=== PATIENT | female | born 1985 | race Caucasian/White ===

== ENCOUNTER 2018-12-01 09:02 | Emergency (ER) | payer OTHER ==
[2018-12-01 09:16] VITALS: TEMP 98.8
[2018-12-01] MEDS ORDERED: SODIUM CHLORIDE 0.9% 1,000 ML IV ONE ×2 (09:22)
--- NOTE | 2018-12-01 09:35 | ED ---
Female Urogenital HPI - General Chief complaint: Vaginal Bleeding Stated complaint: Poss miscarriage Time Seen by Provider: 12/01/18 09:21 Source: patient, RN notes reviewed, old records reviewed Mode of arrival: ambulatory Limitations: no limitations - History of Present Illness Initial comments: This is a 33-year-old female, she presents emergency Department today with complaint of vaginal bleeding beginning last night. Patient states she is approximately 10 weeks . She reports that she had an ultrasound completed at the [facility] to confirm the dates. Patient states that she does not have an HEEL SEAT SANDER at this time but is planning to follow-up with water HEEL SEAT SANDER. Patient reports that she did have some vaginal discharge over the past weekend. She complains of some cramping at this time. Patient is a female. - Related Data Home Medications Medication Instructions Recorded Confirmed Multivitamins, Thera [Multivitamin 1 tab PO DAILY 12/01/18 12/01/18 (formulary)] [place]-3 Fatty Acids/Fish Oil [Fish 1 cap PO DAILY 12/01/18 12/01/18 Oil 1,000 mg Softgel] Zie-Uocy-Zsyjc Acid 1 cap PO DAILY 12/01/18 12/01/18 [-U Capsule (formulary)] Allergies Allergy/AdvReac Type Severity Reaction Status Date / Time sulfamethoxazole Allergy Rash/Hives Verified 12/01/18 09:21 [From Bactrim] trimethoprim [From Bactrim] Allergy Rash/Hives Verified 12/01/18 09:21 Review of Systems ROS Statement: Those systems with pertinent positive or pertinent negative responses have been documented in the HPI. ROS Other: All systems not noted in ROS Statement are negative. Past Medical History Past Medical History: No Reported History History of Any Multi-Drug Resistant Organisms: MRSA Date of last positivie culture/infection: Lt and RT arm 2017 Past Surgical History: No Surgical Hx Reported Past Psychological History: No Psychological Hx Reported Smoking Status: Current every day smoker Past Alcohol Use History: None Reported Past Drug Use History: None Reported General Exam Limitations: no limitations General appearance: alert, in no apparent distress Head exam: Present: atraumatic, normocephalic, normal inspection Eye exam: Present: normal appearance ENT exam: Present: normal exam, mucous membranes moist Neck exam: Present: normal inspection. Absent: tenderness, meningismus, lymphadenopathy Respiratory exam: Present: normal lung sounds bilaterally. Absent: respiratory distress, wheezes, rales, rhonchi, stridor Cardiovascular Exam: Present: regular rate, normal rhythm, normal heart sounds. Absent: systolic murmur, diastolic murmur, rubs, gallop, clicks GI/Abdominal exam: Present: soft, normal bowel sounds. Absent: distended, tenderness, guarding, rebound, rigid External exam: Present: normal external exam Speculum exam: Present: vaginal bleeding (clots within vaginal vault). Absent: normal speculum exam By manual exam: Present: normal by manual exam. Absent: cervical motion tenderness Extremities exam: Present: normal inspection, full ROM, normal capillary refill. Absent: tenderness, pedal edema, joint swelling, calf tenderness Back exam: Present: normal inspection Neurological exam: Present: alert, oriented X3, CN II-XII intact Psychiatric exam: Present: normal affect, normal mood Skin exam: Present: warm Course Vital Signs 12/01/18 09:13 Temperature 98.8 F Pulse Rate 89 Respiratory 18 Rate Blood Pressure 115/66 O2 Sat by Pulse 100 Oximetry Medical Decision Making - Medical Decision Making Patient is a 33-year-old female presents emergency department today for evaluation for vaginal bleeding times one day. She does not have an established U and she is starting to see Dr. Choudhury as well as does have an appointment for Dr. Bob the next 2 weeks. She started having vaginal bleeding and cramping last night into today. On pelvic exam she did have a large clot and it opened cervix. Patient Rh is positive. HCG level 7000. All shot was performed and shows no evidence of intrauterine . Discussed concern for miscarriage about dental IUP. Discussed need to have Patient repeat her hCG levels. I discussed this with Dr. Valdivia, he states we do not have to contact HEEL SEAT SANDER at this time. Discussed he can have a repeat her hCG level. All questions were answered. - Lab Data Result diagrams: 12/01/18 09:42 12/01/18 09:42 Lab Results 12/01/18 12/01/18 12/01/18 Range/Units 09:42 09:42 09:42 WBC 11.1 H (3.8-10.6) k/uL RBC 4.08 (3.80-5.40) m/uL Hgb 12.8 (11.4-16.0) gm/dL Hct 36.2 (34.0-46.0) % MCV 88.9 (80.0-100.0) fL MCH 31.3 (25.0-35.0) pg MCHC 35.3 (31.0-37.0) g/dL RDW 12.7 (11.5-15.5) % Plt Count 349 (150-450) k/uL Neutrophils % 79 % Lymphocytes % 16 % Monocytes % 3 % Eosinophils % 1 % Basophils % 0 % Neutrophils # 8.8 H (1.3-7.7) k/uL Lymphocytes # 1.8 (1.0-4.8) k/uL Monocytes # 0.3 (0-1.0) k/uL Eosinophils # 0.1 (0-0.7) k/uL Basophils # 0.0 (0-0.2) k/uL PT (9.0-12.0) sec INR (<1.2) APTT (22.0-30.0) sec Sodium 141 (137-145) mmol/L Potassium 4.1 (3.5-5.1) mmol/L Chloride 105 (98-107) mmol/L Carbon Dioxide 25 (22-30) mmol/L Anion Gap 11 mmol/L BUN 8 (7-17) mg/dL Creatinine 0.65 (0.52-1.04) mg/dL Est GFR (CKD-EPI)AfAm >90 (>60 ml/min/1.73 sqM) Est GFR (CKD-EPI)NonAf >90 (>60 ml/min/1.73 sqM) Glucose 85 (74-99) mg/dL Calcium 9.8 (8.4-10.2) mg/dL Total Bilirubin 0.3 (0.2-1.3) mg/dL AST 18 (14-36) U/L ALT 16 (9-52) U/L Alkaline Phosphatase 52 (38-126) U/L Total Protein 7.8 (6.3-8.2) g/dL Albumin 4.7 (3.5-5.0) g/dL HCG, Quant 07924.7 mIU/mL Urine Color Urine Appearance (Clear) Urine pH (5.0-8.0) Ur Specific [place] (1.001-1.035) Urine Protein (Negative) Urine Glucose (UA) (Negative) Urine Ketones (Negative) Urine Blood (Negative) Urine Nitrite (Negative) Urine Bilirubin (Negative) Urine Urobilinogen (<2.0) mg/dL Ur Leukocyte Esterase (Negative) Urine RBC (0-5) /hpf Urine WBC (0-5) /hpf Ur Squamous Epith Cells (0-4) /hpf Urine Bacteria (None) /hpf Urine HCG, Qual (Not Detectd) Blood Type B Positive Blood Type Recheck No Previous Record Bld Type Recheck Status [facility] ONLY 12/01/18 12/01/18 12/01/18 Range/Units 09:42 10:16 10:16 WBC (3.8-10.6) k/uL RBC (3.80-5.40) m/uL Hgb (11.4-16.0) gm/dL Hct (34.0-46.0) % MCV (80.0-100.0) fL MCH (25.0-35.0) pg MCHC (31.0-37.0) g/dL RDW (11.5-15.5) % Plt Count (150-450) k/uL Neutrophils % % Lymphocytes % % Monocytes % % Eosinophils % % Basophils % % Neutrophils # (1.3-7.7) k/uL Lymphocytes # (1.0-4.8) k/uL Monocytes # (0-1.0) k/uL Eosinophils # (0-0.7) k/uL Basophils # (0-0.2) k/uL PT 9.8 (9.0-12.0) sec INR 0.9 (<1.2) APTT 26.5 (22.0-30.0) sec Sodium (137-145) mmol/L Potassium (3.5-5.1) mmol/L Chloride (98-107) mmol/L Carbon Dioxide (22-30) mmol/L Anion Gap mmol/L BUN (7-17) mg/dL Creatinine (0.52-1.04) mg/dL Est GFR (CKD-EPI)AfAm (>60 ml/min/1.73 sqM) Est GFR (CKD-EPI)NonAf (>60 ml/min/1.73 sqM) Glucose (74-99) mg/dL Calcium (8.4-10.2) mg/dL Total Bilirubin (0.2-1.3) mg/dL AST (14-36) U/L ALT (9-52) U/L Alkaline Phosphatase (38-126) U/L Total Protein (6.3-8.2) g/dL Albumin (3.5-5.0) g/dL HCG, Quant mIU/mL Urine Color Light Red Urine Appearance Cloudy H (Clear) Urine pH 7.0 (5.0-8.0) Ur Specific [place] 1.002 (1.001-1.035) Urine Protein 1+ H (Negative) Urine Glucose (UA) Negative (Negative) Urine Ketones Negative (Negative) Urine Blood Large H (Negative) Urine Nitrite Negative (Negative) Urine Bilirubin Negative (Negative) Urine Urobilinogen <2.0 (<2.0) mg/dL Ur Leukocyte Esterase Large H (Negative) Urine RBC 8 H (0-5) /hpf Urine WBC 16 H (0-5) /hpf Ur Squamous Epith Cells 7 H (0-4) /hpf Urine Bacteria Rare H (None) /hpf Urine HCG, Qual Detected (Not Detectd) Blood Type Blood Type Recheck Bld Type Recheck Status - Radiology Data Radiology results: report reviewed Ultrasound shows no acute or gestation identified. No suspicious ovarian masses. Her for findings could be concern for spontaneous , ectopic could be considered. Correlate with hCG is recommended. Disposition Clinical Impression: Miscarriage Disposition: HOME SELF-CARE Condition: Good Instructions (If sedation given, give patient instructions): Miscarriage (ED) Additional Instructions: Please use medication as discussed. Please follow up with family doctor if symptoms have not improved over the next two days. Please return to the emergency room if your symptoms increase or worsen or for any other concerns. Is patient prescribed a controlled substance at d/c from ED?: No Referrals: None,Stated [Primary Care Provider] - 1-2 days Madison Bob DO [Doctor of Osteopathic Medicine] - 1-2 days Elvira Velasquez MD [STAFF PHYSICIAN] - 1-2 days Time of Disposition: 11:51
[2018-12-01 10:11] LABS: Basophils % (A) 0 %; Eosinophils # (A) 0.1 k/uL (0-0.7); Eosinophils % (A) 1 %; HCT 36.2 % (34.0-46.0); HGB 12.8 gm/dL (11.4-16.0); Lymphocytes # (A) 1.8 k/uL (1.0-4.8); Lymphocytes % (A) 16 %; MCH 31.3 pg (25.0-35.0); MCHC 35.3 g/dL (31.0-37.0); MCV 88.9 fL (80.0-100.0); Monocytes # (A) 0.3 k/uL (0-1.0); Monocytes % (A) 3 %; Neutrophils # (A) 8.8 k/uL (1.3-7.7); Neutrophils % (A) 79 %; Platelet Count 349 k/uL (150-450); RBC 4.08 m/uL (3.80-5.40); RDW 12.7 % (11.5-15.5); WBC 11.1 k/uL (3.8-10.6)
[2018-12-01 10:16] LABS: INR 0.9 (<1.2); Partial Thromboplastin Time 26.5 sec (22.0-30.0); Prothrombin Time 9.8 sec (9.0-12.0)
[2018-12-01 10:18] LABS: ALT 16 U/L (9-52); AST 18 U/L (14-36); African American GFR (CKD) >90 (>60 ml/min/1.73 sqM); Albumin 4.7 g/dL (3.5-5.0); Alkaline Phosphatase 52 U/L (38-126); Anion Gap 11 mmol/L; Blood Urea Nitrogen 8 mg/dL (7-17); Calcium 9.8 mg/dL (8.4-10.2); Carbon Dioxide 25 mmol/L (22-30); Chloride 105 mmol/L (98-107); Glucose 85 mg/dL (74-99); Potassium 4.1 mmol/L (3.5-5.1); Sodium 141 mmol/L (137-145); Total Bilirubin 0.3 mg/dL (0.2-1.3); Total Protein 7.8 g/dL (6.3-8.2)
[2018-12-01 10:34] LABS: HCG,Quantitative Serum 10411.7 mIU/mL
--- NOTE | 2018-12-01 10:34 | US ---
EXAMINATION TYPE: Transabdominal DATE OF EXAM: 12/01/2018 10:19 AM COMPARISON: NONE CLINICAL HISTORY: pain. bleeding EXAM PERFORMED: Transabdominal (TA) EXAM MEASUREMENTS: GESTATIONAL AGE / DATING Physician Established: (10 weeks/1 days) EDC: 06/28/2019 Dates by LMP: LMP unknown Dates by First Scan: No previous this is first scan Dates by Current Scan for: No IUP seen at this time MATERNAL ANATOMY Uterus: 9.3 x 5.5 x 7.1 cm Right Ovary: 2.7 x 1.6 x1.5 cm Left Ovary: 2.7 x 2.0 x 1.9 cm Post CDS / Adnexa: wnl Presence of free fluid: no Presence of corpus luteal cyst: no Presence of subchorionic bleed: no GESTATION / SURVEY IUP: No IUP seen at this time Beta HcG (if available): Not available at this time IMPRESSION: 1. No intrauterine gestation identified. 2. No suspicious ovarian masses. 3. Findings could be related to spontaneous . Ectopic should be considered. Correla tion with beta-hCG is recommended.
[2018-12-01 10:51] LABS: Appearance,Urine Cloudy (Clear); Bacteria,Urine Rare /hpf; Bilirubin,Urine Negative (Negative); Blood,Urine Large (Negative); Color,Urine Light Red; Glucose,Urine (UA) Negative (Negative); Ketones,Urine Negative (Negative); Leukocyte Esterase,Urine Large (Negative); Nitrite,Urine Negative (Negative); Protein,Urine 1+ (Negative); RBC,Urine 8 /hpf (0-5); Specific Gravity,Urine 1.002 (1.001-1.035); Squamous Epithelial Cell,Urine 7 /hpf (0-4); Urobilinogen,Urine <2.0 mg/dL (<2.0); WBC,Urine 16 /hpf (0-5)
[2018-12-01 12:06] VITALS: BP 108/78; PULSE 70; RESP 16
== END 2018-12-01 12:20 | disposition home or self-care (01) ==
LOC: EC 09:02
DX: O03.9 Complete or unspecified spontaneous abortion without complication (principal); Z67.90 Unspecified blood type, Rh positive; O99.331 Smoking (tobacco) complicating pregnancy, first trimester; F17.200 Nicotine dependence, unspecified, uncomplicated; Z88.2 Allergy status to sulfonamides; Z86.14 Personal history of Methicillin resistant Staphylococcus aureus infection; Z3A.10 10 weeks gestation of pregnancy
CPT/HCPCS: 36415; 76801; 80053; 81001; 81025; 84702; 85025; 85610; 85730; 86900; 86901; 96360; 96361; 99284

== ENCOUNTER → 2020-09-13 | Outpatient (CLI) | payer OTHER ==
--- NOTE | 2020-09-13 13:58 | XR ---
EXAMINATION TYPE: XR cervical spine limited DATE OF EXAM: 09/13/2020 TECHNIQUE: Frontal, lateral, and open mouth view of the cervical spine are obtained. HISTORY: M99.01 M54.2 COMPARISON: None FINDINGS: The cervical spine is visualized in its entirety from C1 thru the top of T1 level. There i s slight straightening of the lower cervical lordosis. The pre-vertebral soft tissue appears within n ormal limits. The C1-C2 articulation is within normal limits on the open mouth view. The oblique im ages are within normal limits. IMPRESSION: There is slight straightening of the lower cervical lordosis.
== END | disposition home or self-care (01) ==
LOC: RADXRMAIN 12:25
DX: M43.6 Torticollis (principal)
CPT/HCPCS: 72040

== ENCOUNTER → 2021-07-27 | Outpatient (CLI) | payer OTHER ==
--- NOTE | 2021-07-27 18:03 | XR ---
EXAMINATION TYPE: XR lumbar spine 2 or 3V DATE OF EXAM: 07/27/2021 COMPARISON: NONE HISTORY: Back pain TECHNIQUE: 3 views FINDINGS: Lumbar vertebrae of normal spacing and alignment. Posterior elements are intact. No nat berenice fracture. Sacroiliac joints are normal. IMPRESSION: Normal lumbar spine exam.
== END | disposition home or self-care (01) ==
LOC: RADXRMAIN 17:18
PROVIDERS: ATTEND Nurse Practitioner Gerontology
DX: M54.9 Dorsalgia, unspecified (principal)
CPT/HCPCS: 72100

== ENCOUNTER → 2021-08-27 | Outpatient (CLI) | payer OTHER ==
--- NOTE | 2021-08-28 04:14 | MR ---
EXAMINATION TYPE: MR lumbar spine wo con DATE OF EXAM: 08/27/2021 COMPARISON: None HISTORY: Back pain x 13 weeks, lumbar radiculopathy Multiplanar multiecho imaging of the lumbar spine with no contrast. The vertebrae have normal alignment. There is decreased signal in the L5-S1 disc. No significant disc space narrowing. No compression fracture. The lumbar neural foramina are widely patent. Posterior el ements are intact. No spinal stenosis. Lumbar nerve roots appear normal. Sacroiliac joints are intact . There is no lumbar paraspinal mass. There is some mild degenerative disc signal change at T11-12. IMPRESSION: Mild degenerative disc signal changes at L5-S1. No lumbar disc herniation or spinal stenosis. No frac ture.
== END | disposition home or self-care (01) ==
LOC: RADMRIMAIN 10:58
PROVIDERS: ATTEND Nurse Practitioner Gerontology
DX: M51.16 Intervertebral disc disorders with radiculopathy, lumbar region (principal)
CPT/HCPCS: 72148

== ENCOUNTER → 2023-02-18 | Outpatient (CLI) | payer BC, OTHER ==
--- NOTE | 2023-02-19 08:46 | MM ---
Reason for Exam: Screening (asymptomatic). Baseline mammogram. Patient History: Menarche at age 14. First Full-Term at age 31. Late child-bearing (after 30). Premenopausal. Risk Values: Nancy 5 year model risk: 0.5%. NCI Lifetime model risk: 12.6%. Prior Study Comparison: Patient's first Mammogram. Tissue Density: The breast tissue is extremely dense which could obscure a lesion on mammography. Findings: Analyzed By CAD. There is no suspicious group of microcalcifications or new suspicious mass in either breast. Overall Assessment: Negative, BI-RAD 1 Management: Screening Mammogram of both breasts in 1 year. . Patient should continue monthly self-breast exams. A clinical breast exam by your physician is recommended on an annual basis. This exam should not preclude additional follow-up of suspicious palpable abnormalities. Note on Nancy scores and lifetime risk: 1. A Nanyc score greater than 3% is considered moderate risk. If this is the case, consider specialist referral to assess eligibility for a risk reducing agent. 2. If overall lifetime risk for the development of breast cancer is 20% or higher, the patient may qualify for future screening with alternating mammogram and breast MRI. Electronically signed and approved by: Chuck Mathew M.D. Radiologis
== END | disposition home or self-care (01) ==
LOC: RADMAMWWP 07:29
PROVIDERS: ATTEND Internal Medicine Geriatric Medicine
DX: Z12.31 Encounter for screening mammogram for malignant neoplasm of breast (principal)
CPT/HCPCS: 77063; 77067

== ENCOUNTER 2024-01-17 12:02 | Inpatient (IN) | payer BC ==
[2024-01-17] MEDS ORDERED: OXYTOCIN 10 UNIT/ML 1 ML VIAL IM PRN (12:29)
[2024-01-17] MEDS ORDERED: miSOPROStoL 200 MCG TAB RECTAL PRN (12:29)
[2024-01-17] MEDS ORDERED: LIDOCAINE 0.5% (PF) 5 MG/ML (50 ML SDV) SQ PRN (12:29)
[2024-01-17] MEDS ORDERED: TRANEXAMIC 1,000 MG/100ML-NACL 1,000 MG in EMPTY BAG 1 BAG IV PRN (12:29)
[2024-01-17] MEDS ORDERED: TERBUTALINE 1 MG/ML VIAL SQ PRN (12:29)
[2024-01-17] MEDS ORDERED: METHYLERGONOVINE 0.2 MG/ML 1 ML AMP IM PRN (12:29)
[2024-01-17] MEDS ORDERED: miSOPROStoL 200 MCG TAB PO PRN (12:29)
[2024-01-17] MEDS ORDERED: CARBOPROST TROMETHAMINE 250 MCG/ML 1 ML AMP IM PRN (12:29)
[2024-01-17 12:40] VITALS: RESP 16
[2024-01-17] MEDS: LACTATED RINGERS 1,000 ML IV SCH (12:44)
[2024-01-17 12:47] LABS: Basophils % (A) 0 %; Eosinophils # (A) 0.1 k/uL (0-0.7); Eosinophils % (A) 1 %; HCT 42.2 % (34.0-46.0); HGB 14.3 gm/dL (11.4-16.0); Lymphocytes # (A) 1.7 k/uL (1.0-4.8); Lymphocytes % (A) 10 %; MCH 33.5 pg (25.0-35.0); MCV 98.6 fL (80.0-100.0); Mean Platelet Volume 7.6; Monocytes # (A) 0.5 k/uL (0-1.0); Monocytes % (A) 3 %; Neutrophils # (A) 14.1 k/uL (1.3-7.7); Neutrophils % (A) 85 %; Platelet Count 253 k/uL (150-450); RBC 4.28 m/uL (3.80-5.40); WBC 16.5 k/uL (3.8-10.6)
--- NOTE | 2024-01-17 12:54 | P.HPOB ---
History of Present Illness H&P Date: 01/17/24 Chief Complaint: 39-3/7 weeks, active labor The patient is a 38-year-old 4 para 1-0-2-1 admitted at 39-3/7 weeks as established by last menstrual period and confirmed by second trimester ultrasound. She is admitted in active labor with all signs reassuring, category 1 heart rate tracing. Her has been uncomplicated and group B strep status is negative. She does fall into the category of advanced maternal age and declined testing for trisomy. Obstetrical history: 4 para 1-0-2-1 with 1 term vaginal delivery without complications. Current statistics are listed in history of present illness. EDC of 01/21/2024 was established by last menstrual period and confirmed by second trimester ultrasound. Laboratory workup demonstrates a blood type of B+ with a negative antibody screen. Rubella status is immune. The remainder of the laboratory workup was within normal limits. 1 hour Glucola was normal and group B strep status is negative. Gynecologic history: Unremarkable with no history of any infections to include STDs. Review of Systems Review of systems is confined to history of present illness. Past Medical History Past Medical History: Asthma, Thyroid Disorder History of Any Multi-Drug Resistant Organisms: MRSA Date of last positivie culture/infection: Lt and RT arm 2017 MDRO Source:: Pt. Past Surgical History: No Surgical Hx Reported Past Anesthesia/Blood Transfusion Reactions: No Reported Reaction Past Psychological History: No Psychological Hx Reported Smoking Status: Current every day smoker Past Alcohol Use History: None Reported Past Drug Use History: None Reported - Past Family History Father Family Medical History: No Reported History Medications and Allergies Home Medications Medication Instructions Recorded Confirmed Type Eqm-Hbpy-Flsks Acid 1 cap PO DAILY 12/01/18 01/17/24 History [-U Capsule (formulary)] Allergies Allergy/AdvReac Type Severity Reaction Status Date / Time sulfamethoxazole Allergy Rash/Hives Verified 01/17/24 12:16 [From Bactrim] trimethoprim [From Bactrim] Allergy Rash/Hives Verified 01/17/24 12:16 Exam Vital Signs Temp Pulse Resp BP Pulse Ox 01/17/24 12:34 97.1 F L 73 16 118/65 99 Intake and Output 01/16/24 01/17/24 01/17/24 22:59 06:59 14:59 Other: Weight 78.925 kg In general, this is a well-developed, well-nourished white female in no acute distress though she is in active labor. Her heart has a regular rhythm and rate without murmur. Her lungs are clear to auscultation bilaterally in all coronado. Her abdomen is gravid, nondistended, has normal active bowel sounds, is soft, nontender, and without any palpable masses aside from the uterine fundus. Her extremities are without any cyanosis, clubbing, or edema and are nontender to palpation bilaterally. Digital cervical examination performed by the nursing staff demonstrates her cervix to be 7 cm dilated, 90% effaced, with the vertex and presentation at -2 station. Results Result Diagrams: 01/17/24 12:38 Abnormal Lab Results - Last 24 Hours (Table) 01/17/24 Range/Units 12:38 WBC 16.5 H (3.8-10.6) k/uL Neutrophils # 14.1 H (1.3-7.7) k/uL Assessment and Plan (1) Active labor at term Current Visit: Yes Status: Acute Code(s): [id number] - SNOMED Code(s): 39921952 Plan: The patient has been admitted for active management of labor. She will shortly undergo artificial rupture of membranes. She has at this point declined any intervention for analgesia. I would anticipate normal spontaneous vaginal delivery in the near future.
[2024-01-17] MEDS ORDERED: BENZOCAINE/MENTHOL SPRAY 1 GM/SPRAY AEROSOL TOPICAL PRN (13:51)
[2024-01-17] MEDS ORDERED: diphenhydrAMINE 25 MG CAP PO PRN (13:51)
[2024-01-17] MEDS ORDERED: SIMETHICONE 80 MG CHEWABLE PO PRN (13:51)
[2024-01-17] MEDS ORDERED: diphenhydrAMINE 50 MG CAP PO PRN (13:51)
[2024-01-17] MEDS ORDERED: HYDROCORTISONE 2.5% RECTAL CREAM 30 GM TUBE RECTAL PRN (13:51)
[2024-01-17] MEDS ORDERED: LANOLIN CREAM 1 GM TUBE TOPICAL PRN (13:51)
[2024-01-17] MEDS ORDERED: ACETAMINOPHEN TAB 500 MG TAB PO PRN (13:51)
[2024-01-17] MEDS ORDERED: diphenhydrAMINE 50 MG/ML 1 ML VIAL IVP PRN ×2 (13:51)
[2024-01-17] MEDS ORDERED: ZOLPIDEM 5 MG TAB PO PRN (13:51)
[2024-01-17] MEDS ORDERED: OXYTOCIN 30 UNITS/500 ML NS 30 UNIT in SALINE 1 500ML.BAG IV SCH (14:00)
[2024-01-17] MEDS: IBUPROFEN 800 MG TAB PO PRN (15:52)
[2024-01-17] MEDS: SENNOSIDES-DOCUSATE SODIUM 1 EACH TAB PO SCH (22:26)
[2024-01-18 05:30] VITALS: PULSE 75
--- NOTE | 2024-01-18 06:18 | P.DS ---
Providers Date of admission: 01/17/24 12:28 Expected date of discharge: 01/18/24 Attending physician: Madison Bob Primary care physician: Stated None - Discharge Diagnosis(es) (1) Active labor at term Current Visit: Yes Status: Acute (2) Normal spontaneous vaginal delivery Current Visit: Yes Status: Acute Hospital Course: The patient is a 38-year-old 4 para 1-0-2-1 admitted at 39-3/7 weeks by good dating parameters. She is admitted in active labor at 7 cm of dilation. H er has been uncomplicated and group B strep status is negative. On labor and delivery, all signs are reassuring with a category 1 heart rate tracing. She declined any intervention for analgesia. She underwent artificial rupture of membranes for clear fluid and then made fairly quick progress to complete. She pushed to a normal spontaneous vaginal delivery of a viable 6 pound 6.5 ounce baby girl with Apgars of 9 at 1 minute and 9 at 5 minutes in the left occiput anterior position. Her course was unremarkable with vital signs remaining stable and her temperature was afebrile throughout. She was deemed stable for discharge on day #1 was discharged home to follow-up in the office in 6 weeks time routinely. Discharge instructions included calling for any significantly increased bleeding or foul-smelling lochia, significantly increased fever or abdominal pain, perineal complaints, breast complaints, or anything else that concerned her. She was additionally instructed to have nothing in the vagina for at least 6 weeks time to include intercourse. She understood her instructions and agrees to follow-up as noted above. Discharge medications included continued vitamins as she has opted to breast-feed. She was otherwise to use [id number] analgesic pain medications as needed. Maternal blood type is B+ and rubella status is immune. Procedures: #1. Artificial rupture of membranes #2. Normal spontaneous vaginal delivery Patient Condition at Discharge: Stable Plan - Discharge Summary New Discharge Prescriptions: No Action [id number]-[id number] Acid [-U Capsule (formulary)] 1 cap PO DAILY Levothyroxine Sodium [Levo-T] 50 mcg PO ONCE Discharge Medication List Zmx-Qrlh-[id number] Acid [-U Capsule (formulary)] 1 cap PO DAILY 12/01/18 [History] Levothyroxine Sodium [Levo-T] 50 mcg PO ONCE 01/17/24 [History] Follow up Appointment(s)/Referral(s): Madison Bob DO [Doctor of Osteopathic Medicine] - 6 Weeks Discharge Disposition: HOME SELF-CARE
--- NOTE | 2024-01-18 06:19 | P.PROBDLV ---
Vaginal Delivery Note - . Vaginal Delivery Note: The patient is a 38-year-old 4 para 1-0-2-1 admitted at 39-3/7 weeks by good dating parameters. She is admitted in active labor with all signs reassuring, category 1 heart rate tracing. Her was uncomplicated and group B strep status is negative. On labor and delivery, she had artificial rupture of membranes carried out demonstrating clear fluid. She progressed quickly to complete and then pushed to a normal spontaneous vaginal delivery of a viable 6 pound 6.5 ounce baby girl with Apgars of 9 at 1 minute and 9 at 5 minutes. The placenta was delivered spontaneously, intact, and grossly normal with a grossly normal, centrally inserted three-vessel cord. There were no lacerations the perineum, vagina, or cervix. Estimated blood loss for the case was approximately 100 mL. There were no complications. All sponge, instrument, and needle counts were correct. Both mother and are resting comfortably in recovery.
[2024-01-18 06:32] LABS: Basophils % (A) 0 %; Eosinophils # (A) 0.2 k/uL (0-0.7); Eosinophils % (A) 2 %; HCT 34.3 % (34.0-46.0); HGB 11.5 gm/dL (11.4-16.0); Lymphocytes % (A) 15 %; MCH 32.4 pg (25.0-35.0); MCHC 33.4 g/dL (31.0-37.0); MCV 97.1 fL (80.0-100.0); Mean Platelet Volume 8.4; Monocytes # (A) 0.4 k/uL (0-1.0); Monocytes % (A) 3 %; Neutrophils # (A) 10.9 k/uL (1.3-7.7); Neutrophils % (A) 80 %; Platelet Count 208 k/uL (150-450); RBC 3.54 m/uL (3.80-5.40); RDW 12.8 % (11.5-15.5); WBC 13.6 k/uL (3.8-10.6)
[2024-01-18 08:36] VITALS: BP 114/66; TEMP 98.1
== END 2024-01-18 14:45 | disposition home or self-care (01) | DRG 807 ==
LOC: FBPOP 12:02 → 4FBP 12:28
PROVIDERS: ADMIT Obstetrics & Gynecology; ATTEND Obstetrics & Gynecology
PROC: 10E0XZZ Delivery of Products of Conception, External Approach (ICD-10-PCS; principal; 2024-01-18)
PROC: 10907ZC Drainage of Amniotic Fluid, Therapeutic from Products of Conception, Via Natural or Artificial Opening (ICD-10-PCS; 2024-01-18)
DX: O99.334 Smoking (tobacco) complicating childbirth (principal); Z37.0 Single live birth; F17.210 Nicotine dependence, cigarettes, uncomplicated; Z3A.39 39 weeks gestation of pregnancy; Z86.14 Personal history of Methicillin resistant Staphylococcus aureus infection
CPT/HCPCS: 59025; 85025; 86850; 86900; 86901; 99213